=== PATIENT | female | born 1945 | race Caucasian/White ===

== ENCOUNTER → 2023-05-04 | Outpatient (CLI) | payer MEDICARE ==
--- NOTE | 2023-05-06 15:23 | PE ---
EXAMINATION TYPE: PET CT fusion skull to thigh DATE OF EXAM: 05/04/2023 CLINICAL INDICATION:Female, 77 years old with history of R91.8 lung nodules; TECHNIQUE: Following the intravenous administration of 11.5 mCi of F-18 FDG, whole body images are performed from the skull base to the midthigh. Images are reviewed on the computer in the coronal, a xial, and sagittal planes. Reconstructed rotating images are created on independent workstation and reviewed on the computer. A non-contrast CT is performed in conjunction with the PET scan. Glucose level 87 mg/dL CT DLP: 668 mGycm, Automated exposure control for dose reduction was used. COMPARISON: CT None, PET/CT None, FINDINGS: Mediastinal SUV mean is 2.4. Hepatic parenchyma SUV mean is 3.4. SKULL BASE AND NECK: No suspicious radiotracer activity. CHEST, MEDIASTINUM, AND HILAR REGION: * Right upper lobe 14 x 15 mm nodule Max SUV 7.6. Series 3 image 78. * Left upper lobe 9 mm pulmonary nodule Max SUV 1.4. Series 3 image 82. * Streaky opacities in the left lung apex without increased metabolic activity. * No abnormal mediastinal lymphadenopathy with increased metabolic activity. ABDOMEN AND PELVIS: No suspicious radiotracer activity. MUSCULOSKELETAL STRUCTURES: No suspicious radiotracer activity. OTHER CT: Bilateral aphakia. Atherosclerosis of the arterial vasculature including the coronary arter ies. There is a small hiatal hernia. Atrophic kidneys with exophytic left renal cyst. Right nonobstru cting renal calculus measuring [address] IVC filter in [address]. Scattered colonic diverticula are present. Fat-containing umbilical hernia. IMPRESSION: Right upper lung 15 mm pulmonary nodule with increased metabolic activity compatible with malignancy. No evidence for metastatic disease at this time.
== END | disposition home or self-care (01) ==
LOC: RADPETMAIN 13:00
PROVIDERS: ATTEND Internal Medicine Critical Care Medicine
DX: R91.1 Solitary pulmonary nodule (principal); R91.8 Other nonspecific abnormal finding of lung field
CPT/HCPCS: 78815; A9552

== ENCOUNTER 2023-06-08 08:06 | Day surgery (SDC) | payer MEDICARE ==
[~2023-06-08 08:06] MED LIST: DEXAMETHASONE SOD PHOSPHATE 4 MG/ML 1 ML VIAL IV ONE; HYDROmorphone 0.5 MG/0.5 ML SYRINGE IVP PRN; LACTATED RINGERS 1,000 ML IV SCH; ONDANSETRON 4 MG/2 ML VIAL IVP ONE
[2023-06-08] MEDS: LACTATED RINGERS 1,000 ML IV SCH (09:13)
[2023-06-08] MEDS ORDERED: NEOSTIGMINE 1 MG/ML 10 ML VIAL ONE (09:16)
[2023-06-08] MEDS ORDERED: MIDAZOLAM 2 MG/2 ML VIAL ONE (09:16)
[2023-06-08] MEDS ORDERED: PROPOFOL 10 MG/ML 20 ML VIAL IV ONE (09:16)
[2023-06-08] MEDS ORDERED: PHENYLEPHRINE 10 MG/ML VIAL ONE (09:16)
[2023-06-08] MEDS ORDERED: fentaNYL (PF) 50 MCG/ML 2 ML AMP ONE (09:16)
[2023-06-08] MEDS ORDERED: LIDOCAINE 1% INJ 10MG/ML (20 ML MDV) ONE (09:16)
[2023-06-08] MEDS ORDERED: ROCURONIUM 10 MG/ML (5 ML VIAL) IV ONE (09:16)
[2023-06-08] MEDS ORDERED: GLYCOPYRROLATE 0.2 MG/ML 2 ML VIAL ONE (09:16)
--- NOTE | 2023-06-08 10:11 | CT ---
Exam: CT Chest without contrast. Date: 06/08/2023. Comparison: PET/CT on 05/04/2023. History: Ion bronchoscopy. Technique: CT examination of the chest was performed without contrast. Coronal and sagittal reformats were performed. CT dose lowering techniques were used, to include: automated exposure control, adjus tment for patient size, and/or use of iterative reconstruction. FINDINGS: Mediastinum and Leidy: There is no axillary, mediastinal or hilar lymphadenopathy. Pleural and Pericardial spaces: There are no pleural or pericardial effusions. Upper Abdomen: Probable cysts in the left kidney which was not hypermetabolic on PET/CT. Small hiatal hernia. Visualized upper abdomen otherwise appears unremarkable. Cardiovascular: There is mild vascular calcification in the aortic arch without evidence of aneurysma l dilation. There are severe diffuse coronary calcifications. Lung Parenchyma and Airways: There is a 1.3 x 1.3 cm spiculated nodule within the right upper lobe on series 6 image 85 which is very similar to the previous examination. There is a 5 mm nodule in the r ight middle lobe on series 6 image 139, previously approximately 4.3 mm. There is a 1.6 mm nodule in the right middle lobe on series 6 image 146. This was not clearly identified on the previous examinat ion, however limitations due to slice thickness on the PET/CT scan are noted. Direct comparison is of ten difficult. Additional 2 mm nodule is seen in the right middle lobe on series 6 image 154 which wa s also not clearly identified on the prior PET/CT. 1 cm right lower lobe nodule on series 6 image 170 previously measured 8.3 mm there are a few linear areas of nodularity in the left lung apex which ar e likely unchanged. Subtle nodular density within the left upper lobe measures 4 mm on series 6 image 49 was not clearly seen. 8 mm left upper lobe nodule on series 6 image 85 is unchanged. Bones: The bones are diffusely demineralized. Several compression deformities and kyphoplasty cement are seen throughout vertebral bodies of the thoracic and upper lumbar region. Old fracture of the upp er portion of the sternum is noted. IMPRESSION: 1. Pulmonary nodules as above. 2. Additional findings as above. 3. No acute findings otherwise seen.
--- NOTE | 2023-06-08 10:13 | P.PCN ---
Date of Procedure: 06/08/23 Description of Procedure: Preoperative Diagnosis: Right upper lobe nodule, 14 mm Postoperative Diagnosis: Right upper lobe nodule, 14 mm Procedure(s) Performed: Flexible bronchoscopy Robotic-assisted bronchoscopy and addition to radial ultrasound evaluation of the right upper lobe pulmonary nodule Robotic-assisted test monitor needle aspirate, transbronchial biopsies, transbronchial brushing of the Right upper lobe pulmonary nodule in addition to a bronchioloalveolar lavage Anesthesia: MANDYA Surgeon: Terri Henning Estimated Blood Loss (ml): 0 Pathology: other Condition: stable Disposition: same day Operative Findings: A physical exam was performed. Informed consent was obtained from the patient after explaining all the risks (pneumothorax, life threatening bleeding, infection and adverse effects due to medications), benefits and alternatives to the procedure which the patient appeared to understand and so stated. The patient was connected to the monitoring devices. General anesthesia was induced and the patient was intubated by anesthesia. A final timeout was performed and the procedure confirmed by the attending staff bronchoscopist. The bronchoscope was inserted and the airway examined. The airway examination was within normal limits. There was some limited secretions that were suctioned out without any major difficulties. The flexible bronchoscope was removed and the robotic bronchoscope was inserted. Registration was completed. I next guided the robotic bronchoscope using the navigation system into the Right upper lobe posterior segment segment. Once in proper position, the bronchoscope was frozen. The radial EBUS probe was placed through the bronchoscope and confirmed abnormal u/s images vs normal lung. A needle was placed through the working channel and under fluoroscopic guidance, we sampled the area thought to have the mass twice. We then used a cloud biopsy pattern with ultrasound confirmation for 3 additional passes with the needle. I utilize a 21 -gauge needle. Rapid on-site pathologic evaluation was done in the samples were adequate. U/S evaluation was then used to reconfirm location. Forceps were next introduced through working channel and extended the appropriate distance and 2 transbronchial biopsies were performed using fluoroscopic guidance. The u/s probe was then reinserted to confirm location. When confirmed this process was repeated for a total of 8 transbronchial biopsies. After reassessment with EBUS, a brush was placed through the extendable working channel for 1 pass with fluoroscopic guidance. U/S evaluation was then used to confirm location. 40ml of saline was then instilled into the area of the lesion. The robotic bronchoscope was removed and the airway inspected with a flexible bronchoscope and 10 ml of effluent from the BAL was collected. The patient was then re intubated with the EBUS-TBNA bronchoscope and intubated with an Olympus IT bronchoscope without difficutly. The airways were inspected and cleared of secretions and blood. Fluoroscopic check for pneumothorax was negative upon completion of the procedure. There was 0 ml blood loss with the procedure. FINDINGS: 1.The airways appeared normal 2 Successful navigation, ultrasonographic identification, and biopsies of right upper lobe pulmonary nodule 3.The radial ultrasound view was initially eccentric and later on concentric RECOMMENDATIONS: Await pathology and cytology results The referring physician will be alerted to the results when available. The patient was advised to follow up with the referring physician with the biopsy results Patient will be called with results.
[2023-06-08 10:47] VITALS: TEMP 98
[2023-06-08 11:20] VITALS: RESP 18
--- NOTE | 2023-06-08 11:52 | XR ---
EXAMINATION TYPE: XR chest 1V DATE OF EXAM: 06/08/2023 COMPARISON: Correlation CT exam HISTORY: 77-year-old female post biopsy TECHNIQUE: Single frontal view of the chest is obtained. FINDINGS: Heart upper limits of normal in size. Rightward patient rotation ultrasound and normal cardiac and me diastinal contours. Hyperinflation. Mild interstitial density. Some strandy atelectasis. Densities at the right hilum and periphery of the right base may relate to underlying Optiray nodules which are b amor demonstrated on CT. Thickness rotator cuff tear right shoulder. No appreciable pneumothorax. IMPRESSION: COPD. No appreciable pneumothorax. Subtle nodularity on the right probably corresponding to the pulmonary nodules better demonstrated on CT.
[2023-06-08 11:54] VITALS: BP 144/84; PULSE 68
--- NOTE | 2023-06-11 16:38 | FL ---
EXAMINATION TYPE: FL bronchoscopy DATE OF EXAM: 06/08/2023 FLUOROSCOPY Fluoroscopy time of 1 minute 49 seconds was used during robot Ion bronchoscopy. 19 image/s document/ s the procedure. dap 6.0114 Gycm2
== END 2023-06-08 12:05 | disposition home or self-care (01) ==
LOC: ORWHC2ENDO 08:06
PROVIDERS: ATTEND Internal Medicine Critical Care Medicine
DX: C34.11 Malignant neoplasm of upper lobe, right bronchus or lung (principal); J44.9 Chronic obstructive pulmonary disease, unspecified; I25.10 Atherosclerotic heart disease of native coronary artery without angina pectoris; G40.909 Epilepsy, unspecified, not intractable, without status epilepticus; E78.5 Hyperlipidemia, unspecified; K44.9 Diaphragmatic hernia without obstruction or gangrene; F41.9 Anxiety disorder, unspecified; Z83.2 Family history of diseases of the blood and blood-forming organs and certain disorders involving the immune mechanism; Z86.718 Personal history of other venous thrombosis and embolism; Z87.891 Personal history of nicotine dependence; Z90.710 Acquired absence of both cervix and uterus
CPT/HCPCS: 87798 ×3; 87496; 87498; 87529; 88108; 88305; 88342; 87502; 87634; 88341; 87070; 87205; 87116; 87102; 87206; 87635; 71045; 71250; 31628; 31629; 31623; 31624; J2250; J2710; J2001; J3010; J2704; J2371; S2900